=== PATIENT | male | born 1970 | race American Indian/Alaskan Native ===

== ENCOUNTER 2022-02-18 16:17 | Emergency (ER) | payer SELFPAY ==
[2022-02-18] MEDS ORDERED: ASPIRIN 325 MG TAB PO ONE (16:28)
--- NOTE | 2022-02-18 16:55 | XRay Report ---
CHEST 2 VIEWS INDICATION / CLINICAL INFORMATION: Shortness of breath. COMPARISON: None available. FINDINGS: SUPPORT DEVICES: None. HEART / MEDIASTINUM: The heart size and pulmonary vasculature are normal. LUNGS / PLEURA: No significant pulmonary or pleural abnormality. No pneumothorax. ADDITIONAL FINDINGS: No significant additional findings. IMPRESSION: No acute findings. Signer Name: Casa Reich MD Signed: 02/18/2022 4:51 PM Workstation Name: [email or web address]
[2022-02-18 17:25] LABS: Basophils % (Auto) 0.7 % (0.0-1.8); Eosinophils # (Auto) 0.2 K/mm3 (0.0-0.4); Eosinophils % (Auto) 4.2 % (0.0-4.3); Hematocrit 39.1 % (35.5-45.6); Hemoglobin 12.1 gm/dl (11.8-15.2); Lymphocytes # (Auto) 1.2 K/mm3 (1.2-5.4); Mean Corpuscular HGB Conc 31 % (32-34); Mean Corpuscular Volume 75 fl (84-94); Monocytes # (Auto) 0.3 K/mm3 (0.0-0.8); Platelet Count 222 K/mm3 (140-440); Red Blood Count 5.18 M/mm3 (3.65-5.03)
[2022-02-18 17:37] LABS: INR 0.92 (0.87-1.13); Partial Thromboplastin Time 29.7 Sec. (24.2-36.6)
[2022-02-18 17:43] LABS: Alanine Aminotransferase 71 units/L (7-56); Albumin 3.9 g/dL (3.9-5); BUN/Creatinine Ratio 7; Blood Urea Nitrogen 7 mg/dL (9-20); Calcium 9.5 mg/dL (8.4-10.2); Hemolysis Index 3
[2022-02-18] MEDS ORDERED: INSULIN REGULAR, HUMAN 100 UNITS/1 ML IV ONE (21:39)
[2022-02-18] MEDS ORDERED: FUROSEMIDE 40 MG/4 ML INJ IV ONE (21:39)
[2022-02-18] MEDS ORDERED: LISINOPRIL 5 MG TAB PO ONE (21:39)
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
[2022-02-18] MEDS ORDERED: SODIUM CHLORIDE 0.9% 500 ML 500 ML IV ONE (22:27)
[2022-02-18 23:42] LABS: BUN/Creatinine Ratio 9; Blood Urea Nitrogen 7 mg/dL (9-20); Calcium 9.5 mg/dL (8.4-10.2); Hemolysis Index 17
[2022-02-19 02:11] VITALS: BP 123/79
--- NOTE | 2022-02-19 12:16 | Electrocardiograph Report ---
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
== END 2022-02-19 02:15 | disposition home or self-care (01) ==
LOC: ED 16:17
DX: E11.65 Type 2 diabetes mellitus with hyperglycemia (principal); R60.0 Localized edema; R74.01 Elevation of levels of liver transaminase levels; Z72.89 Other problems related to lifestyle; Z71.6 Tobacco abuse counseling; Z68.41 Body mass index [BMI] 40.0-44.9, adult; Z28.9 Immunization not carried out for unspecified reason; I11.0 Hypertensive heart disease with heart failure; I50.9 Heart failure, unspecified; J44.9 Chronic obstructive pulmonary disease, unspecified; F20.0 Paranoid schizophrenia; Z98.890 Other specified postprocedural states; F17.290 Nicotine dependence, other tobacco product, uncomplicated
CPT/HCPCS: 36415; 71046; 80048; 80053; 82805; 83880; 84484; 85025; 85610; 85730; 93005; 96374; 96375; 99284; J1940; J7040; Q9967; J1815